=== PATIENT | female | born 1970 | race American Indian/Alaskan Native ===

== ENCOUNTER 2017-03-30 09:48 | Outpatient (CLI) | payer BC ==
--- NOTE | 2017-03-30 11:10 | Ultrasound Report ---
Renal ultrasound: Chronic renal disease. The right renal length is approximately 14.7 cm. There is severe hydronephrosis with narrowing of the surrounding renal parenchyma. There is no change in the hydronephrosis prior to or after voiding. There is also some question as to whether the proximal ureter is also dilated. The inferior pole of the right kidney however is not optimally visualized. No obvious calculus seen. The left kidney has a length of approximately 9.3 cm. The parenchyma is moderately echogenic. There is an echogenic slightly shadowing density in the central kidney measuring 6.5 mm. There is no hydronephrosis no renal mass identified. The prevoid bladder is unremarkable. There is a small amount of post void residual. Impressions: 1. Right hydronephrosis and probable hydro-ureter. 2. Echogenic kidneys consistent with medical renal disease. 3. Nonobstructing left renal calculus.
== END 2017-03-30 09:49 | disposition home or self-care (01) ==
LOC: US 09:48
PROVIDERS: ATTEND Internal Medicine Nephrology
DX: N18.3 Chronic kidney disease, stage 3 (moderate) (principal); N13.2 Hydronephrosis with renal and ureteral calculous obstruction; K80.20 Calculus of gallbladder without cholecystitis without obstruction
CPT/HCPCS: 76770